=== PATIENT | female | born 1945 | race Caucasian/White ===

== ENCOUNTER 2018-02-16 08:59 | Emergency (ER) | payer MEDICARE ==
[~2018-02-16] VITALS: Ht 160 cm; Wt 100.0 kg
[~2018-02-16 08:59] MED LIST: ALBUTEROL0.5 % IN; ALBUTEROL2.5 MG/3 M IN; ALENDRONATE70 MG OR; ALENDRONATE70 MG PO; ALPRAZOLAM0.5 MG PO; AMOXICILLIN/CL875 MG PO; ANTI-FUNGAL12 TOP; ARAVA20 MG OR; AZITHROMYCIN500 MG PO; BENZONATATE200 MG PO; CALCIUM + D600 MG OR; CALCIUM + D600 MG PO; CALCIUM 1000 + D PO; CIPROFLOXACN500 MG PO; CLARITHROMYC500 M2 PO; CLARITIN10 M1 PO; CLOPIDOGREL75 MG PO; CYANOCOBALAM1000 MCG IJ; CYANOCOBALAM1000 MCG IM; DICLOFENAC SODI75 MG PO; DIFLUCAN150 MG PO; DOXYCYCL HYC100 MG PO; FEXOFENADINE H180 MG PO; FLONASE NASAL50 MCG; FLORASTOR250 M1 PO; FLUARIX QUADRIV1 IN1 IM; FLUZONE SPLT1 M1 IM; FOSAMAX70 MG PO; GABAPENTIN300 MG PO; HUMIRA PEN; KEFLEX500 MG OR; KEFLEX500 MG PO; KLOR-CON M2020 MEQ PO; LASIX 40 MG TAB40 MG PO; LASIX 80 MG TAB80 MG OR; LEVAQUIN500 MG PO; LEVAQUIN750 MG PO; LISINOPRIL10 MG PO; MEDDOSEPAK PO; METHOTREXATE2.5 MG PO; MOMETASONE0.11 EX; MUCINEX600 MG PO; NABUMETONE500 MG OR; NAPROSYN500 MG OR; NASONEX50 MCG/AC; NYSTATIN100000 M1 MT; NYSTATIN100000 M1 OR; NYSTATIN100000 M1 PO; OMEPRAZOLE20 MG PO; OMEPRAZOLE40 MG PO; PLAVIX75 MG PO; POTASSIUM25 MEQ OR; PRAVASTATIN20 MG PO; PREDNISONE10 MG PO; PREDNISONE20 MG PO; PROLIA60 MG/ML SC; PROTONIX40 MG PO; ROCEPHIN 1 GM1 GM IM; SANTYL250 MG/GM EX; SOLU-MEDROL125 MG IM; TRAMADOL HCL50 MG PO; TRIAM/NYSTAT TOP; TRIAMCINOLON0.11 EX; VITAMIN D2000 UNI1 PO; ZYRTEC-D AL1 OR; [UNRECOGNIZED DRUG - OTHER]
[2018-02-16 09:41] LABS: IMMATURE GRANULOCYTES 0.6 % (0.0-5.0); MEAN CELL VOLUME 83.3 fL CALC (80.0-100.0); MEAN CORPUSCULAR HGB 27.1 pG CALC (26.0-32.0); MEAN CORPUSCULAR HGB CONC 32.6 g/L CALC (32.0-36.0); NEUT# 3.37 thou/uL (2.00-7.15); RED BLOOD COUNT 4.9 mill/uL (4.20-5.60); RED CELL DISTRI WIDTH 16.3 % (11.5-15.5)
[2018-02-16 09:42] LABS: HEMATOCRIT 40.8 % (37.0-47.0); HEMOGLOBIN 13.3 g/dl (12.0-16.0)
[2018-02-16] MEDS ORDERED: ATORVASTATIN CA20 MG PO (09:51)
[2018-02-16] MEDS ORDERED: PLAVIX75 MG PO (09:55)
[2018-02-16] MEDS ORDERED: MAXZIDE-25MG1 COMBO PO (09:59)
[2018-02-16] MEDS ORDERED: PAXIL30 MG PO (10:00)
[2018-02-16] MEDS ORDERED: SYMBICORT 80-4.5MCG IN (10:02)
[2018-02-16] MEDS ORDERED: VENTOLIN HFA IN (10:02)
[2018-02-16 10:03] LABS: ALKALINE PHOSPHATASE 90 u/l (38-126); ANION GAP 15 (6-22 (CALC)); BILIRUBIN, TOTAL 1.3 mg/dL (0.0-1.4); BUN 29 mg/dL (8-23); BUN/CREATININE RATIO 33 (12-20 (CALC)); CARBON DIOXIDE 27 mmol/l (22-30); CHLORIDE 101 mmol/l (95-108); CREATININE 0.9 mg/dL (0.5-1.0); GFR > 60 ML/MIN (>=60 (CALC)); GFR FOR AFR.AMER. > 60 ML/MIN (>=60 (CALC)); LIPASE 117 u/l (23-300); POTASSIUM 4.3 mmol/l (3.5-5.1); SGOT/AST 38 u/l (9-36); SODIUM 139 mmol/l (137-146); TOTAL PROTEIN 7.1 g/dL (6.3-8.2)
[2018-02-16 10:40] LABS: URINE BILIRUBIN - DIPSTICK NEGATIVE (NEGATIVE); URINE BLOOD DIPSTICK NEGATIVE (NEGATIVE); URINE COLOR YELLOW; URINE GLUCOSE - DIPSTICK NEGATIVE (NEGATIVE); URINE KETONE NEGATIVE (NEGATIVE); URINE LEUK ESTERASE NEGATIVE (NEGATIVE); URINE NITRITE - DIPSTICK NEGATIVE (Negative); URINE PROTEIN - DIPSTICK NEGATIVE (NEG-TRACE); URINE SPECIFIC GRAVITY 1.015
[2018-02-16 10:41] LABS: URINE CLARITY CLEAR
[2018-02-16] MEDS ORDERED: DYRENIUM50 MG PO (11:24)
[2018-02-16 11:39] VITALS: BP 129/63
== END 2018-02-16 11:45 | disposition home or self-care (01) ==
LOC: ED 08:59
PROVIDERS: Family Medicine
DX: R53.1 Weakness (principal); I11.0 Hypertensive heart disease with heart failure; I50.9 Heart failure, unspecified; I73.9 Peripheral vascular disease, unspecified; F32.9 Major depressive disorder, single episode, unspecified; J44.9 Chronic obstructive pulmonary disease, unspecified
CPT/HCPCS: J3420

== ENCOUNTER 2018-09-03 19:38 | Emergency (ER) | payer MEDICARE ==
[~2018-09-03] VITALS: Ht 160 cm; Wt 100.0 kg
[~2018-09-03 19:38] MED LIST changes: +ATORVASTATIN CA20 MG PO; +DYRENIUM50 MG PO; +MAXZIDE-25MG1 COMBO PO; +PAXIL30 MG PO; +SYMBICORT 80-4.5MCG IN; +VENTOLIN HFA IN
[2018-09-03] MEDS ORDERED: LASIX 80 MG TAB80 M1 PO (20:15)
[2018-09-03] MEDS ORDERED: K-TAB20 MEQ PO (20:17)
[2018-09-03] MEDS ORDERED: PLAVIX75 MG PO (20:19)
[2018-09-03] MEDS ORDERED: ALBUTEROL SUL0.083 % IN (21:42)
[2018-09-03] MEDS ORDERED: TESSALON PER100 MG PO (21:42)
[2018-09-03] MEDS ORDERED: ZITHROMAX500 MG PO (21:42)
[2018-09-03 22:20] VITALS: BP 104/51
== END 2018-09-03 22:27 | disposition home or self-care (01) ==
LOC: ED 19:38
DX: J44.9 Chronic obstructive pulmonary disease, unspecified (principal); R05 Cough; R09.81 Nasal congestion; R09.82 Postnasal drip; R06.2 Wheezing

== ENCOUNTER 2019-12-17 11:53 | Inpatient (IN) | payer MEDICARE ==
[~2019-12-17] VITALS: Ht 157.5 cm; Wt 87.7 kg
[~2019-12-17 11:53] MED LIST changes: +ALBUTEROL SUL0.083 % IN; +K-TAB20 MEQ PO; +LASIX 80 MG TAB80 M1 PO; +TESSALON PER100 MG PO; +ZITHROMAX500 MG PO
[2019-12-17] MEDS ORDERED: VITAMIN B-1250 MG PO (12:12)
[2019-12-17 12:41] LABS: HEMATOCRIT 29.9 % (37.0-47.0); HEMOGLOBIN 9.5 g/dl (12.0-16.0); IMMATURE GRANULOCYTES 1.5 % (0.0-5.0); MEAN CELL VOLUME 82.8 fL CALC (80.0-100.0); MEAN CORPUSCULAR HGB 26.3 pG CALC (26.0-32.0); MEAN CORPUSCULAR HGB CONC 31.8 g/dL CAL (32.0-36.0); NEUT# 4.07 thou/uL (2.00-7.15); RED BLOOD COUNT 3.61 mill/uL (4.20-5.60); RED CELL DISTRI WIDTH 15.7 % (11.5-15.5)
[2019-12-17 13:00] LABS: ALBUMIN 3.6 g/dL (3.2-5.0); ANION GAP 11 (6-22 (CALC)); BILIRUBIN, TOTAL 1.5 mg/dL (0.0-1.4); BUN 45 mg/dL (8-23); BUN/CREATININE RATIO 33 (12-20 (CALC)); C-REACTIVE PROTEIN 6.4 mg/dL (0-0.9); CARBON DIOXIDE 26 mmol/l (22-30); CHLORIDE 102 mmol/l (95-108); CREATININE 1.4 mg/dL (0.5-1.0); GFR 37 ML/MIN (>=60 (CALC)); GFR FOR AFR.AMER. 45 ML/MIN (>=60 (CALC)); POTASSIUM 4.2 mmol/l (3.5-5.1); SGOT/AST 42 u/l (9-36); SODIUM 135 mmol/l (137-146); TOTAL PROTEIN 6.6 g/dL (6.3-8.2)
[2019-12-17 13:01] LABS: ALKALINE PHOSPHATASE 143 u/l (38-126)
[2019-12-17 13:08] LABS: INTERNATIONAL NORMALIZED RATIO 1.1 RATIO (0.7-1.3); PROTHROMBIN TIME 10.6 SECONDS (9.0-12.5)
[2019-12-17 13:28] LABS: D-DIMER 2.56 mg/L (0.19-0.60)
[2019-12-17 18:40] VITALS: BP 176/100
[2019-12-17 19:00] VITALS: BP 127/61
[2019-12-18 00:30] VITALS: BP 136/58
[2019-12-18 04:00] VITALS: BP 149/92
[2019-12-18 05:51] LABS: HEMATOCRIT 31.9 % (37.0-47.0); MEAN CELL VOLUME 83.1 fL CALC (80.0-100.0); MEAN CORPUSCULAR HGB CONC 31.3 g/dL CAL (32.0-36.0); RED BLOOD COUNT 3.84 mill/uL (4.20-5.60); RED CELL DISTRI WIDTH 15.3 % (11.5-15.5)
[2019-12-18 05:56] LABS: URINE BILIRUBIN - DIPSTICK NEGATIVE (NEGATIVE); URINE BLOOD DIPSTICK NEGATIVE (NEGATIVE); URINE COLOR YELLOW; URINE GLUCOSE - DIPSTICK NEGATIVE (NEGATIVE); URINE KETONE NEGATIVE (NEGATIVE); URINE LEUK ESTERASE NEGATIVE (NEGATIVE); URINE NITRITE - DIPSTICK NEGATIVE (Negative); URINE PROTEIN - DIPSTICK NEGATIVE (NEG-TRACE); URINE SPECIFIC GRAVITY <=1.005
[2019-12-18 06:15] LABS: CREATININE 1.2 mg/dL (0.5-1.0); POTASSIUM 4.4 mmol/l (3.5-5.1)
[2019-12-18 08:55] VITALS: BP 169/81
[2019-12-18 11:25] VITALS: BP 107/49
[2019-12-18 15:38] VITALS: BP 121/61
[2019-12-18 19:15] VITALS: BP 113/63
[2019-12-19] VITALS: BP 120/54
[2019-12-19 04:00] VITALS: BP 148/71
[2019-12-19 08:01] VITALS: BP 137/64
[2019-12-19 11:34] VITALS: BP 150/66
[2019-12-19 17:00] VITALS: BP 140/72
[2019-12-19 19:29] VITALS: BP 148/54
[2019-12-20 00:30] VITALS: BP 130/62
[2019-12-20 04:16] VITALS: BP 133/85
[2019-12-20 05:21] LABS: HEMATOCRIT 28.7 % (37.0-47.0); IMMATURE GRANULOCYTES 1.8 % (0.0-5.0); MEAN CELL VOLUME 83.7 fL CALC (80.0-100.0); MEAN CORPUSCULAR HGB 26.2 pG CALC (26.0-32.0); MEAN CORPUSCULAR HGB CONC 31.4 g/dL CAL (32.0-36.0); NEUT# 4.35 thou/uL (2.00-7.15); RED BLOOD COUNT 3.43 mill/uL (4.20-5.60); RED CELL DISTRI WIDTH 15.5 % (11.5-15.5)
[2019-12-20 05:55] LABS: ALBUMIN 2.9 g/dL (3.2-5.0); ALKALINE PHOSPHATASE 103 u/l (38-126); ANION GAP 8 (6-22 (CALC)); BUN 34 mg/dL (8-23); BUN/CREATININE RATIO 37 (12-20 (CALC)); C-REACTIVE PROTEIN 2.2 mg/dL (0-0.9); CARBON DIOXIDE 24 mmol/l (22-30); CHLORIDE 110 mmol/l (95-108); CREATININE 0.9 mg/dL (0.5-1.0); GFR > 60 ML/MIN (>=60 (CALC)); GFR FOR AFR.AMER. > 60 ML/MIN (>=60 (CALC)); POTASSIUM 4.2 mmol/l (3.5-5.1); SGOT/AST 43 u/l (9-36); SODIUM 137 mmol/l (137-146); TOTAL PROTEIN 5.5 g/dL (6.3-8.2)
[2019-12-20 06:00] LABS: BILIRUBIN, TOTAL 0.6 mg/dL (0.0-1.4)
[2019-12-20 08:14] VITALS: BP 146/68
[2019-12-20] MEDS ORDERED: DEXAMETHASON6 MG PO (10:21)
[2019-12-20] MEDS ORDERED: Levaquin PO (10:21)
[2019-12-20 11:13] VITALS: BP 124/63
== END 2019-12-20 14:50 | disposition home or self-care (01) | DRG 177 ==
LOC: ED 11:53 → ED-I 16:29 → MS2 16:30 → ED 16:30 → MS2 16:51
PROVIDERS: Nurse Practitioner; Nurse Practitioner Family; Student in an Organized Health Care Education/Training Program; ADMIT Internal Medicine; ATTEND Internal Medicine
DX: U07.1 COVID-19 (principal); J12.89 Other viral pneumonia; J96.01 Acute respiratory failure with hypoxia; J44.0 Chronic obstructive pulmonary disease with (acute) lower respiratory infection; I11.0 Hypertensive heart disease with heart failure; I50.9 Heart failure, unspecified; E86.0 Dehydration; I73.9 Peripheral vascular disease, unspecified; F32.9 Major depressive disorder, single episode, unspecified
CPT/HCPCS: J1650

== ENCOUNTER 2021-02-03 09:34 | Emergency (ER) | payer MEDICARE ==
[~2021-02-03] VITALS: Ht 157.5 cm; Wt 93.0 kg
[~2021-02-03 09:34] MED LIST changes: +DEXAMETHASON6 MG PO; +Levaquin PO; +VITAMIN B-1250 MG PO
[2021-02-03 10:32] LABS: HEMATOCRIT 35.4 % (37.0-47.0); HEMOGLOBIN 11.4 g/dl (12.0-16.0); IMMATURE GRANULOCYTES 0.1 % (0.0-5.0); MEAN CELL VOLUME 87.4 fL CALC (80.0-100.0); MEAN CORPUSCULAR HGB 28.1 pG CALC (26.0-32.0); MEAN CORPUSCULAR HGB CONC 32.2 g/dL CAL (32.0-36.0); NEUT# 6.06 thou/uL (2.00-7.15); RED BLOOD COUNT 4.05 mill/uL (4.20-5.60); RED CELL DISTRI WIDTH 16.9 % (11.5-15.5)
[2021-02-03 10:39] LABS: ALBUMIN 4.5 g/dL (3.2-5.0); ALKALINE PHOSPHATASE 114 u/l (38-126); AMYLASE 85 u/l (30-110); BILIRUBIN, TOTAL 2.1 mg/dL (0.0-1.4); BUN 58 mg/dL (8-23); BUN/CREATININE RATIO 37 (12-20 (CALC)); CHLORIDE 106 mmol/l (95-108); CREATININE 1.6 mg/dL (0.5-1.0); GFR 31 ML/MIN (>=60 (CALC)); GFR FOR AFR.AMER. 38 ML/MIN (>=60 (CALC)); LIPASE 155 u/l (23-300); POTASSIUM 5.1 mmol/l (3.5-5.1); SODIUM 140 mmol/l (137-146); TOTAL PROTEIN 7.5 g/dL (6.3-8.2)
[2021-02-03 10:40] LABS: ANION GAP 15 (6-22 (CALC)); CARBON DIOXIDE 24 mmol/l (22-30); SGOT/AST 96 u/l (9-36)
[2021-02-03 10:51] LABS: MYOGLOBIN 99 ng/mL (0 - 62)
[2021-02-03 14:14] LABS: URINE BILIRUBIN - DIPSTICK NEGATIVE (NEGATIVE); URINE BLOOD DIPSTICK NEGATIVE (NEGATIVE); URINE COLOR YELLOW; URINE GLUCOSE - DIPSTICK NEGATIVE (NEGATIVE); URINE KETONE NEGATIVE (NEGATIVE); URINE LEUK ESTERASE NEGATIVE (NEGATIVE); URINE PH 6.5 (4.5-8.0); URINE PROTEIN - DIPSTICK NEGATIVE (NEG-TRACE); URINE SPECIFIC GRAVITY 1.015
[2021-02-03 14:16] LABS: URINE NITRITE - DIPSTICK NEGATIVE (Negative)
[2021-02-03 16:11] LABS: TSH, 3RD GENERATION 1.08 uIU/mL (0.47 - 4.68)
[2021-02-03 17:00] VITALS: BP 157/66
== END 2021-02-03 17:09 | disposition home or self-care (01) ==
LOC: ED 09:34
PROVIDERS: Emergency Medicine
DX: R10.13 Epigastric pain (principal); R07.9 Chest pain, unspecified; I10 Essential (primary) hypertension; F32.9 Major depressive disorder, single episode, unspecified; J44.9 Chronic obstructive pulmonary disease, unspecified; I73.9 Peripheral vascular disease, unspecified

== ENCOUNTER 2021-11-16 22:01 | Emergency (ER) | payer MEDICARE ==
[~2021-11-16] VITALS: Ht 157.5 cm; Wt 91.0 kg
[~2021-11-16 22:01] MED LIST changes: +LASIX 20 MG TAB20 MG PO; -LASIX 80 MG TAB80 M1 PO
[2021-11-16 22:45] LABS: HEMATOCRIT 37.2 % (37.0-47.0); HEMOGLOBIN 11.9 g/dl (12.0-16.0); MEAN CELL VOLUME 86.9 fL CALC (80.0-100.0); MEAN CORPUSCULAR HGB 27.8 pG CALC (26.0-32.0); NEUT# 7.39 thou/uL (2.00-7.15); RED BLOOD COUNT 4.28 mill/uL (4.20-5.60); RED CELL DISTRI WIDTH 15.6 % (11.5-15.5)
[2021-11-16 22:46] VITALS: BP 133/42
[2021-11-16 23:01] VITALS: BP 141/45
[2021-11-16 23:07] LABS: ALBUMIN 3.8 g/dL (3.2-5.0); BILIRUBIN, TOTAL 1.4 mg/dL (0.0-1.4); CREATININE 1.8 mg/dL (0.5-1.0); MAGNESIUM 2.4 mg/dL (1.6-2.3); TOTAL PROTEIN 6.2 g/dL (6.3-8.2)
[2021-11-16 23:10] LABS: POTASSIUM 5.4 mmol/l (3.5-5.1)
[2021-11-16 23:37] LABS: TSH, 3RD GENERATION 5.43 uIU/mL (0.47 - 4.68)
[2021-11-16 23:46] VITALS: BP 131/45
[2021-11-17 00:02] VITALS: BP 113/34
[2021-11-17 00:15] VITALS: BP 125/50
[2021-11-17 00:31] VITALS: BP 120/48
[2021-11-17 00:46] VITALS: BP 164/57
[2021-11-17 00:46] LABS: URINE BILIRUBIN - DIPSTICK NEGATIVE (NEGATIVE); URINE BLOOD DIPSTICK NEGATIVE (NEGATIVE); URINE COLOR YELLOW; URINE GLUCOSE - DIPSTICK NEGATIVE (NEGATIVE); URINE KETONE NEGATIVE (NEGATIVE); URINE LEUK ESTERASE NEGATIVE (NEGATIVE); URINE PROTEIN - DIPSTICK NEGATIVE (NEG-TRACE); URINE UROBILINOGEN - DIPSTICK 0.2 E.U./dL (0.2)
[2021-11-17 00:47] LABS: URINE NITRITE - DIPSTICK NEGATIVE (Negative)
[2021-11-17 01:00] VITALS: BP 143/78
== END 2021-11-17 01:11 | disposition home or self-care (01) ==
LOC: ED 22:01
PROVIDERS: Family Medicine
DX: E86.0 Dehydration (principal); N17.9 Acute kidney failure, unspecified; I10 Essential (primary) hypertension; J44.9 Chronic obstructive pulmonary disease, unspecified; I73.9 Peripheral vascular disease, unspecified; F32.A Depression, unspecified; Z20.822 Contact with and (suspected) exposure to COVID-19

== ENCOUNTER 2021-12-29 14:20 | Emergency (ER) | payer MEDICARE ==
[~2021-12-29] VITALS: Ht 157.5 cm; Wt 90.9 kg
[2021-12-29] VITALS (12 sets, daily range): BP systolic 138–209; BP diastolic 53–89
== END 2021-12-29 17:54 | disposition home or self-care (01) ==
LOC: ED 14:20
DX: S00.83XA Contusion of other part of head, initial encounter (principal); W01.0XXA Fall on same level from slipping, tripping and stumbling without subsequent striking against object, initial encounter; Y92.009 Unspecified place in unspecified non-institutional (private) residence as the place of occurrence of the external cause; I10 Essential (primary) hypertension; S09.90XA Unspecified injury of head, initial encounter

== ENCOUNTER 2022-11-16 07:43 | Observation (INO) | payer MEDICARE ==
[~2022-11-16] VITALS: Ht 157.5 cm; Wt 97.0 kg
[2022-11-16] VITALS (26 sets, daily range): BP systolic 113–164; BP diastolic 40–77
[2022-11-16 08:20] LABS: BASO% 0.3 % (0-3); EOS% 2.8 % (0-8); HEMOGLOBIN 12.7 g/dl (12.0-16.0); LYMPH% 12.3 % (15-41); MEAN CELL VOLUME 83.8 fL CALC (80.0-100.0); MONO% 5.2 % (2-13); NEUT# 4.53 thou/uL (2.00-7.15); NEUT% 78.4 % (42-76); RED BLOOD COUNT 4.89 mill/uL (4.20-5.60); RED CELL DISTRI WIDTH 18.2 % (11.5-15.5)
[2022-11-16 08:31] LABS: ALBUMIN 4.1 g/dL (3.2-5.0); ALKALINE PHOSPHATASE 140 u/l (38-126); ANION GAP 14 (6-22 (CALC)); BUN 21 mg/dL (8-23); BUN/CREATININE RATIO 22 (12-20 (CALC)); CARBON DIOXIDE 30 mmol/l (22-30); CHLORIDE 102 mmol/l (95-108); GFR FOR AFR.AMER. > 60 ML/MIN (>=60 (CALC)); GFR OTHER RACES 54 ML/MIN (>=60 (CALC)); POTASSIUM 4.4 mmol/l (3.5-5.1); SODIUM 141 mmol/l (137-146); TOTAL PROTEIN 7.3 g/dL (6.3-8.2)
[2022-11-16 08:33] LABS: BILIRUBIN, TOTAL 2.4 mg/dL (0.02-1.3); SGOT/AST 53 u/l (9-36)
[2022-11-17] VITALS (8 sets, daily range): BP systolic 139–162; BP diastolic 40–60
[2022-11-17 05:51] LABS: MEAN CELL VOLUME 85.9 fL CALC (80.0-100.0); MEAN CORPUSCULAR HGB 26.3 pG CALC (26.0-32.0); MEAN CORPUSCULAR HGB CONC 30.6 g/dL CAL (32.0-36.0); RED BLOOD COUNT 4.19 mill/uL (4.20-5.60); RED CELL DISTRI WIDTH 18.4 % (11.5-15.5)
[2022-11-17 05:59] LABS: ALBUMIN 3.5 g/dL (3.2-5.0); ALKALINE PHOSPHATASE 118 u/l (38-126); ANION GAP 11 (6-22 (CALC)); BILIRUBIN, TOTAL 2.4 mg/dL (0.02-1.3); BUN 26 mg/dL (8-23); BUN/CREATININE RATIO 25 (12-20 (CALC)); CARBON DIOXIDE 30 mmol/l (22-30); CHLORIDE 103 mmol/l (95-108); GFR FOR AFR.AMER. > 60 ML/MIN (>=60 (CALC)); GFR OTHER RACES 54 ML/MIN (>=60 (CALC)); SGOT/AST 38 u/l (9-36); SODIUM 140 mmol/l (137-146); TOTAL PROTEIN 6.1 g/dL (6.3-8.2)
[2022-11-17] MEDS ORDERED: LORTAB5 PO (16:58)
== END 2022-11-17 17:45 | disposition home or self-care (01) ==
LOC: ED 07:43 → MS2 12:11
PROVIDERS: Family Medicine; ADMIT Internal Medicine; ATTEND Internal Medicine
DX: R55 Syncope and collapse (principal); S32.030A Wedge compression fracture of third lumbar vertebra, initial encounter for closed fracture; S22.080A Wedge compression fracture of T11-T12 vertebra, initial encounter for closed fracture; I10 Essential (primary) hypertension; I25.10 Atherosclerotic heart disease of native coronary artery without angina pectoris; I73.9 Peripheral vascular disease, unspecified; J44.9 Chronic obstructive pulmonary disease, unspecified; M19.90 Unspecified osteoarthritis, unspecified site; F32.A Depression, unspecified; W18.30XA Fall on same level, unspecified, initial encounter; Y93.H2 Activity, gardening and landscaping; Y92.007 Garden or yard of unspecified non-institutional (private) residence as the place of occurrence of the external cause; Z91.81 History of falling
CPT/HCPCS: J1650; Q9967